=== PATIENT | female | born 1985 | race Caucasian/White ===

== ENCOUNTER 2023-01-25 13:28 | Emergency (ER) | payer BC, MEDICAID, SELFPAY ==
[2023-01-25 15:25] VITALS: PULSE 68; RESP 16; TEMP 36.2; O2SAT 100
--- NOTE | 2023-01-25 17:29 | ED.DENTAL ---
HPI - Dental/Oral General Chief complaint: Dental/Oral Stated complaint: left jaw swelling Time Seen by Provider: 01/25/23 17:02 History of Present Illness HPI Narrative: 37-year-old female with a history of Down syndrome reports with her mother for evaluation of left cheek swelling for 1 day. Patient's mother states patient woke up with left cheek swelling yesterday. Mother states she gave the patient ibuprofen earlier today with some relief. Patient has a history of caries and needing multiple teeth pulled, patient's mother is concerned this is occurring again. When asked where the patient is hurting, she points to her left cheek. Denies fever, nausea or vomiting, diarrhea, sore throat, ear pain. States patient is otherwise doing well. Related Data Allergies Allergy/AdvReac Type Severity Reaction Status Date / Time No Known Allergies Allergy Verified 01/25/23 16:51 Review of Systems Review of Systems: CONSTITUTIONAL: Denies fever, chills EYES: Denies visual changes, redness, or discharge. ENT: Denies rhinorrhea, congestion, sore throat, or otalgia. CARDIOVASCULAR: Denies chest pain, palpitations, or edema. RESPIRATORY: Denies cough or dyspnea. GASTROINTESTINAL: Denies abdominal pain, nausea, vomiting, or diarrhea. GENITOURINARY: Denies dysuria or hematuria. SKIN: Denies rash or itching. MUSCULOSKELETAL: Denies back pain, joint pain, or myalgia. NEUROLOGIC: Denies headache, numbness, dizziness, or weakness. PSYCHIATRIC: Denies anxiety or depression. Exam Narrative: GENERAL: Well-appearing, well-nourished, and in no acute distress. Patient resting comfortably in the exam chair. HEAD: Normocephalic, atraumatic. EYES: PERRLA and EOMI. ENT: Nares clear, no rhinorrhea or epistaxis. Mucous membranes moist. Oropharynx without tonsillar hypertrophy exudate or other lesions. Cracked left mandibular molar with caries. No evidence of periapical abscess. No areas of fluctuance, induration or erythema to gingiva, buccal mucosa, cheek. No trismus. Floor of mouth is soft. Slight edema to left cheek without overlying skin changes. No submandibular swelling. Pt tolerating secretions. No tenderness to movement of bilateral auricles. No tenderness over mastoid processes. Left TM pearly, jackson, no bulging. Right TM injected, no bulging. NECK: Supple. No adenopathy or masses. CHEST: Clear to auscultation. No respiratory distress. No wheezes rales or rhonchi HEART: Regular rate and rhythm. No murmur heard. Normal peripheral pulses. ABDOMEN: Soft, nontender, nondistended, normal active bowel sounds. EXTREMITIES: Normal range of motion. No edema. SKIN: Warm, dry, no rash. NEURO: No focal deficits. PSYCH: Normal mood and affect. Course Vital Signs Vital signs: Vital Signs Temperature 97.1 F L 01/25/23 15:25 Pulse Rate 68 01/25/23 15:25 Respiratory Rate 16 01/25/23 15:25 Pulse Oximetry 100 01/25/23 15:25 Oxygen Delivery Room Air 01/25/23 15:25 Temperature 97.1 F L 01/25/23 15:25 Pulse Rate 65 01/25/23 18:15 Respiratory Rate 18 01/25/23 18:15 Blood Pressure 107/59 L 01/25/23 18:15 Pulse Oximetry 100 01/25/23 18:15 Oxygen Delivery Room Air 01/25/23 15:25 MDM - Dental/Oral MDM Narrative Medical decision making narrative: 37-year-old female with a history of Down syndrome presents with her mother and reports for evaluation of left cheek swelling for 1 day. Exam reveals slight left cheek swelling and a left mandibular molar that is fractured with caries. No overlying skin changes to face. No trismus. Pt tolerating secretions. No areas of induration or fluctuation suggesting a deeper infection. No submandibular swelling. Pt afebrile. Augmentin sent to pharmacy to cover dental infection. Advised close follow-up with patient's dentist for reevaluation. Patient's mother agrees and reports she will call the dentist to schedule an appointment. Patient's mother requests a prescription for Diflucan as rochelle
[2023-01-25 18:15] VITALS: BP 105/56; BP 107/59; PULSE 60; PULSE 65; RESP 18; O2SAT 100
== END 2023-01-25 18:18 | disposition home or self-care (01) ==
LOC: ANHED 17:51
PROVIDERS: Emergency Provider Physician Assistant
DX: K02.9 Dental caries, unspecified (principal); K03.81 Cracked tooth; Q90.9 Down syndrome, unspecified
CPT/HCPCS: 99283